=== PATIENT | female | born 1950 | race Hispanic/Latino ===

== ENCOUNTER → 2022-01-09 | Outpatient (CLI) | payer MEDICARE | LOC: MRI 08:16 | PROVIDERS: ATTEND Pain Medicine Pain Medicine | DX: M51.36 Other intervertebral disc degeneration, lumbar region (principal); M48.54XA Collapsed vertebra, not elsewhere classified, thoracic region, initial encounter for fracture; M48.56XA Collapsed vertebra, not elsewhere classified, lumbar region, initial encounter for fracture | CPT/HCPCS: 72148 ==

== ENCOUNTER → 2022-06-12 | Outpatient (CLI) | payer MEDICARE | LOC: MAMMO 07:48 | PROVIDERS: ATTEND Family Medicine | DX: Z12.31 Encounter for screening mammogram for malignant neoplasm of breast (principal); M85.88 Other specified disorders of bone density and structure, other site | CPT/HCPCS: 77067; 77080 ==